=== PATIENT | female | born 1985 | race Caucasian/White ===

== ENCOUNTER 2021-07-22 11:41 | Observation (INO) | payer MEDICAID, OTHER ==
[~2021-07-22] VITALS: Ht 162.6 cm; Wt 88.5 kg
[2021-07-22] MEDS ORDERED: DEXT 5%/LACTATED RINGERS 1,000 ML IV SCH (13:15)
[2021-07-22 13:39] LABS: CLARITY URINE CLEAR (CLEAR); COLOR URINE YELLOW (YELLOW); KETONES URINE NEGATIVE (NEGATIVE); LEUKOCYTE ESTERASE URINE NEGATIVE (NEGATIVE); NITRITE URINE NEGATIVE (NEGATIVE); OCCULT BLOOD URINE NEGATIVE (NEGATIVE); PROTEIN URINE NEGATIVE (NEGATIVE); SPECIFIC GRAVITY URINE 1.018 (1.005-1.030)
== END 2021-07-22 14:20 | disposition home or self-care (01) ==
LOC: ER 11:47 → 8 EST LDRP 12:14 → 8 EST A/PP 12:18
PROVIDERS: ADMIT Obstetrics & Gynecology; ATTEND Obstetrics & Gynecology
DX: O99.891 Other specified diseases and conditions complicating pregnancy (principal); M54.50 Low back pain, unspecified; O26.893 Other specified pregnancy related conditions, third trimester; R42 Dizziness and giddiness; Z3A.31 31 weeks gestation of pregnancy
CPT/HCPCS: 81003; 82962; 96360; 96361; 99281; G0378; 59025; J7121

== ENCOUNTER 2021-09-06 20:37 | Observation (INO) | payer MEDICAID ==
[~2021-09-06] VITALS: Ht 162.6 cm; Wt 91.6 kg
== END 2021-09-06 21:50 | disposition home or self-care (01) ==
LOC: 8 EST LDRP 20:37
PROVIDERS: ADMIT Obstetrics & Gynecology; ATTEND Obstetrics & Gynecology
DX: O42.92 Full-term premature rupture of membranes, unspecified as to length of time between rupture and onset of labor (principal); O62.9 Abnormality of forces of labor, unspecified; Z3A.38 38 weeks gestation of pregnancy
CPT/HCPCS: 59025; 99281; G0378